=== PATIENT | female | born 1985 | race Caucasian/White ===

== ENCOUNTER 2022-08-24 15:16 | Emergency (ER) | payer MEDICAID ==
[~2022-08-24] VITALS: Ht 157.5 cm; Wt 75.0 kg
[2022-08-24 15:26] VITALS: BP 144/75
--- NOTE | 2022-08-24 16:00 | NUR ---
BIB SELF C/O VAGINAL BLEEDING, LOWER BACK , LOWER ABDOMINAL , ELAM,CHILLS X YESTERDAY. PT HAD 2 WEEKS AGO. COVID TESTED NEGATIVE YESTERDAY.
[2022-08-24 16:50] LABS: BASOPHILS % (AUTO) 0.3 % (0.0-2.0); EOSINOPHILS # (AUTO) 0.2 K/uL (0-0.4); HEMATOCRIT 38.1 % (36-48); HEMOGLOBIN 12.5 g/dL (12.0-16.0); LYMPHOCYTES % (AUTO) 13.1 % (20.5-51.1); MEAN CORPUSCULAR HEMOGLOBIN 28 pg (27-31); MEAN CORPUSCULAR HGB CONC 33 g/dL (33-37); MEAN CORPUSCULAR VOLUME 84.3 fL (80-94); MONOCYTES # (AUTO) 0.5 K/uL (0.8-1.0); NEUTROPHILS % (AUTO) 77.6 % (42.2-75.2); PLATELET COUNT (AUTO) 287 K/uL (140-450); RED BLOOD CELL COUNT(AUTO) 4.51 MIL/uL (4.20-5.40); RED CELL DISTRIBUTION WIDTH 14.3 % (11.6-13.7); WHITE BLOOD COUNT (AUTO) 7.8 K/uL (4.8-10.8)
--- NOTE | 2022-08-24 17:40 | NUR ---
Patient ambulated to bed 7.
[2022-08-24 17:48] LABS: APPEARANCE,URINE HAZY (CLEAR); BILIRUBIN,URINE NEGATIVE (NEGATIVE); BLOOD, URINE 3+ (NEGATIVE); COLOR,URINE ORANGE (YELLOW); LEUKOCYTE ESTERASE ,URINE 1+ (NEGATIVE); NITRITE, URINE POSITIVE (NEGATIVE); PH,URINE 5.5 (5.0-9.0); UGLUCOSE NEGATIVE (NEGATIVE)
[2022-08-24] MEDS ORDERED: KETOROLAC 15 MG/ML VIAL IVP ONE (17:50)
[2022-08-24] MEDS ORDERED: NACL 0.9% 1,000 ML IV ONE (17:50)
[2022-08-24] MEDS ORDERED: ONDANSETRON 4 MG/2 ML VIAL IVP ONE (17:50)
[2022-08-24 18:55] LABS: RBC,URINE 20-50 /HPF (0-5)
--- NOTE | 2022-08-24 19:10 | NUR ---
Report given to ANA Joiner for transfer of care.
[2022-08-24 19:11] LABS: ANION GAP 11.9 (8-16); CARBON DIOXIDE 28.6 mmol/L (21-32); CREATININE 0.7 mg/dL (0.6-1.3); POTASSIUM 4.5 mmol/L (3.5-5.1)
[2022-08-24 19:25] LABS: ALBUMIN 3.7 g/dL (3.4-5.0); TOTAL BILIRUBIN 0.1 mg/dL (0.0-1.0)
--- NOTE | 2022-08-24 19:45 | NUR ---
Patient resting in bed, A/Ox4, chest rise and fall symmetrical, no c/o pain or s/s of distress, on monitor.
--- NOTE | 2022-08-24 21:20 | NUR ---
Patient resting in bed, A/Ox4, chest rise and fall symmetrical, no c/o pain or s/s of distress, on monitor.
[2022-08-24] MEDS ORDERED: cefTRIAXone 1,000 MG VIAL ONE (22:33)
--- NOTE | 2022-08-24 23:50 | NUR ---
Patient resting in bed, A/Ox4, chest rise and fall symmetrical, no c/o pain or s/s of distress, on monitor.
[2022-08-25] MEDS ORDERED: NITR100C7 PO (00:03)
[2022-08-25 00:22] VITALS: BP 114/72
== END 2022-08-25 00:23 | disposition home or self-care (01) ==
LOC: MED 15:16
DX: O20.9 Hemorrhage in early pregnancy, unspecified (principal); O23.41 Unspecified infection of urinary tract in pregnancy, first trimester; O99.411 Diseases of the circulatory system complicating pregnancy, first trimester; R00.0 Tachycardia, unspecified; O99.341 Other mental disorders complicating pregnancy, first trimester; F41.9 Anxiety disorder, unspecified; O99.511 Diseases of the respiratory system complicating pregnancy, first trimester; J45.909 Unspecified asthma, uncomplicated; Z3A.01 Less than 8 weeks gestation of pregnancy; Z86.69 Personal history of other diseases of the nervous system and sense organs
CPT/HCPCS: 36415; 76830; 80053; 81001; 81025; 85025; 87040; 87086; 96361; 96365; 96375; 99285; J0696; J1885; J2405; J7030; Q0092